=== PATIENT | female | born 1950 | race Caucasian/White ===

== ENCOUNTER 2019-02-01 02:34 | Emergency (ER) | payer SELFPAY ==
[~2019-02-01] VITALS: Ht 157.5 cm; Wt 77.0 kg
[2019-02-01] MEDS ORDERED: SODIUM CHLORIDE 0.9% 1,000 ML IV ONE (03:08)
[2019-02-01] MEDS ORDERED: ONDANSETRON HCL 4MG/2ML INJ IV STA (03:08)
[2019-02-01] MEDS ORDERED: MORPHINE SULFATE 4 MG/ML CPJ (NOT FOR IM USE) IV STA (03:08)
[2019-02-01 03:28] LABS: CHLORIDE 109 mEq/L (98-107)
[2019-02-01 03:30] LABS: BASOPHILS % 0.9 % (0.0-2.0); EOSINOPHILS % 4.7 % (0.0-5.0); HEMOGLOBIN. 12.8 g/dL (12.0-16.0); LYMPHOCYTES % 37.9 % (20.0-50.0); MEAN CORPUSCULAR HEMOGLOBIN 31.5 pg (28.0-32.0); MEAN CORPUSCULAR VOLUME 91.1 fL (81.0-99.0); MONOCYTES % 7.6 % (2.0-8.0); NEUTROPHILS % 48.9 % (40.0-76.0); PLATELET 214 x1000/uL (130-400); RED BLOOD CELL COUNT 4.06 mill/uL (4.2-5.4); RED CELL DISTRIBUTION WIDTH 14.5 % (11.6-14.6)
[2019-02-01] MEDS ORDERED: CLONIDINE 0.1MG TABLET PO PRN (08:00)
[2019-02-01] MEDS ORDERED: DEXTROSE 50% WATER 50ML SYRINGE IV PRN (08:00)
[2019-02-01] MEDS ORDERED: DOCUSATE SODIUM 100MG CAPSULE PO PRN (08:00)
[2019-02-01] MEDS ORDERED: MAGNESIUM/ALUMINUM HYDROXIDE/SIMETHICONE 30ML UDC PO PRN (08:00)
[2019-02-01] MEDS ORDERED: IPRATROPIUM/ALBUTEROL 0.5-3(2.5)MG/3ML NEB INH PRN (08:00)
[2019-02-01] MEDS ORDERED: ACETAMINOPHEN 325MG TABLET PO PRN (08:00)
[2019-02-01] MEDS ORDERED: ZOLPIDEM TARTRATE 5MG TABLET PO PRN (08:00)
[2019-02-01] MEDS ORDERED: ONDANSETRON HCL 4MG/2ML INJ IV PRN (08:00)
[2019-02-01] MEDS ORDERED: GUAIFENESIN 200MG/10ML SUGAR FREE UDC PO PRN (08:00)
[2019-02-01] MEDS ORDERED: INSULIN LISPRO 100 UNITS/ML SUBCUT SCH (08:20)
[2019-02-01] MEDS ORDERED: ENOXAPARIN 40MG/0.4ML SYR SUBCUT SCH (09:00)
[2019-02-01] MEDS ORDERED: FAMOTIDINE 20MG TABLET PO SCH (09:00)
[2019-02-01] MEDS ORDERED: BLOOD SUGAR DIAGNOSTIC STRIP TEST SCH (09:00)
[2019-02-01] MEDS ORDERED: ASPIRIN 325MG EC TABLET PO SCH (09:00)
[2019-02-01 13:50] VITALS: BP 120/60
== END 2019-02-01 14:11 | disposition home or self-care (01) ==
LOC: ER 02:34 → CANBEDREQ 16:18
DX: S06.0X0A Concussion without loss of consciousness, initial encounter (principal); G93.49 Other encephalopathy; E11.9 Type 2 diabetes mellitus without complications; I10 Essential (primary) hypertension; I69.351 Hemiplegia and hemiparesis following cerebral infarction affecting right dominant side; W01.0XXA Fall on same level from slipping, tripping and stumbling without subsequent striking against object, initial encounter; Y93.89 Activity, other specified; Y92.018 Other place in single-family (private) house as the place of occurrence of the external cause
CPT/HCPCS: 36415; 70450; 71045; 72125; 80053; 80061; 82962; 83036; 84484; 85025; 93005; 96372; 96374; 96375; 99284; J1650; J2270; J2405; J7030; Z7610

== ENCOUNTER 2021-09-05 15:38 | Inpatient (IN) | payer BC, MEDICAID ==
[~2021-09-05] VITALS: Ht 165.1 cm; Wt 75.3 kg
[~2021-09-05 15:38] MED LIST: INSULIN GLARGINE UD 100 UNITS/ML SYR SUBCUT SCH
[2021-09-05] MEDS ORDERED: PROCHLORPERAZINE 10MG/2ML VIAL IV STA (16:24)
[2021-09-05] MEDS ORDERED: MECLIZINE 25MG TABLET PO ONE (16:30)
[2021-09-05] MEDS ORDERED: LORAZEPAM 2MG/ML CPJ IV ONE (16:30)
[2021-09-05 19:20] LABS: BASOPHILS % 0.4 % (0.0-2.0); CHLORIDE 108 mEq/L (98-107); EOSINOPHILS % 4.4 % (0.0-5.0); LYMPHOCYTES % 35.6 % (20.0-50.0); MEAN CORPUSCULAR HEMOGLOBIN 29.7 pg (28.0-32.0); MEAN CORPUSCULAR VOLUME 88.6 fL (81.0-99.0); MEAN PLATELET VOLUME 8.8 fl (7.4-10.4); MONOCYTES % 7.4 % (2.0-8.0); NEUTROPHILS % 52.2 % (40.0-76.0); PLATELET 182 x1000/uL (130-400); RED BLOOD CELL COUNT 4.73 mill/uL (4.2-5.4); RED CELL DISTRIBUTION WIDTH 16.3 % (11.6-14.6)
[2021-09-05 19:24] LABS: ETHANOL BLOOD < 10 mg/dL
[2021-09-05 19:30] LABS: LDL CHOLESTEROL 69 mg/dL (5-100)
[2021-09-05 19:41] LABS: PROTHROMBIN TIME 11.1 sec (9.6-11.0)
[2021-09-05 20:29] LABS: CLARITY URINE CLEAR (CLEAR); COLOR URINE DARK YELLOW (YELLOW); KETONES URINE NEGATIVE (NEGATIVE); LEUKOCYTE ESTERASE URINE NEGATIVE (NEGATIVE); NITRITE URINE POSITIVE (NEGATIVE); OCCULT BLOOD URINE TRACE (NEGATIVE); PH URINE 5.5 (4.5-8.0); PROTEIN URINE NEGATIVE (NEGATIVE); SPECIFIC GRAVITY URINE 1.069 (1.005-1.030); UROBILINOGEN URINE 0.2 E.U./dL (0.2-1.0)
[2021-09-05 20:47] LABS: *BARBITURATES SCREEN URINE NEGATIVE (NEGATIVE); *BENZODIAZEPINES SCREEN URINE NEGATIVE (NEGATIVE)
[2021-09-05 20:48] LABS: *AMPHETAMINES SCREEN URINE NEGATIVE (NEGATIVE); *COCAINE SCREEN URINE NEGATIVE (NEGATIVE); METHADONE URINE SCREEN NEGATIVE (NEGATIVE); OPIATES URINE SCREEN PRESUMTIVE POSITIVE (NEGATIVE); PHENCYCLIDINE URINE SCREEN NEGATIVE (NEGATIVE)
[2021-09-05 20:49] LABS: CANNABINOID URINE SCREEN NEGATIVE (NEGATIVE)
[2021-09-05] MEDS ORDERED: CEFTRIAXONE 1 G PREMIX 50 ML IV ONE (21:15)
[2021-09-05] MEDS ORDERED: DEXTROSE 50% WATER 50ML SYRINGE IV PRN (21:30)
[2021-09-05] MEDS ORDERED: ACETAMINOPHEN 325MG TABLET PO PRN (21:30)
[2021-09-05] MEDS ORDERED: ONDANSETRON HCL 4MG/2ML INJ IV PRN (21:30)
[2021-09-05] MEDS ORDERED: GUAIFENESIN 200MG/10ML SUGAR FREE UDC PO PRN (21:30)
[2021-09-05] MEDS ORDERED: CLONIDINE 0.1MG TABLET PO PRN (21:30)
[2021-09-05] MEDS ORDERED: INSULIN GLARGINE UD 100 UNITS/ML SYR SUBCUT NR (21:45)
[2021-09-05] MEDS ORDERED: NALOXONE HCL 0.4MG/ML VIAL IV PRN (21:45)
[2021-09-05] MEDS: ENOXAPARIN 40MG/0.4ML SYR SUBCUT SCH (22:22)
[2021-09-06] MEDS ORDERED: DEXAMETHASONE 10 MG/ML VIAL IV SCH (01:00)
[2021-09-06] MEDS ORDERED: ONDANSETRON HCL 4MG/2ML INJ IV SCH (01:00)
[2021-09-06] MEDS ORDERED: SODIUM CHLORIDE 0.9% 100 ML IV ONE (01:00)
[2021-09-06] MEDS ORDERED: KETOROLAC 15MG/ML VIAL IV SCH (01:00)
[2021-09-06] MEDS ORDERED: IOHEXOL-350 100 ML BOTTLE ONE (05:30)
[2021-09-06 05:33] LABS: BASOPHILS % 0.1 % (0.0-2.0); EOSINOPHILS % 0.7 % (0.0-5.0); HEMATOCRIT. 43.8 % (36.0-48.0); HEMOGLOBIN. 14.6 g/dL (12.0-16.0); LYMPHOCYTES % 12.3 % (20.0-50.0); MEAN CORPUSCULAR HEMOGLOBIN 29.7 pg (28.0-32.0); MEAN CORPUSCULAR VOLUME 89.1 fL (81.0-99.0); MONOCYTES % 2.2 % (2.0-8.0); NEUTROPHILS % 84.7 % (40.0-76.0); PLATELET 189 x1000/uL (130-400); RED BLOOD CELL COUNT 4.92 mill/uL (4.2-5.4); RED CELL DISTRIBUTION WIDTH 16.2 % (11.6-14.6)
[2021-09-06 05:40] LABS: CHLORIDE 111 mEq/L (98-107)
[2021-09-06] MEDS: BLOOD SUGAR DIAGNOSTIC STRIP TEST SCH ×4 (09:43→21:00)
[2021-09-06] MEDS: HYDROCODONE/ACETAMINOPHEN 5/325MG TABLET PO PRN (09:50)
[2021-09-06] MEDS: ACETAMINOPHEN 325MG TABLET PO PRN (12:24)
[2021-09-06] MEDS: INSULIN GLARGINE UD 100 UNITS/ML SYR SUBCUT SCH (12:28)
[2021-09-06] MEDS ORDERED: PROCHLORPERAZINE 10MG/2ML VIAL IV NR ×2 (14:00→21:00)
[2021-09-06] MEDS: MAGNESIUM/ALUMINUM HYDROXIDE/SIMETHICONE 30ML UDC PO PRN (18:40)
[2021-09-06] MEDS: ENOXAPARIN 40MG/0.4ML SYR SUBCUT SCH (21:00)
[2021-09-07 09:00] VITALS: BP 148/73
[2021-09-07 11:37] VITALS: BP 128/75
[2021-09-07] MEDS: BLOOD SUGAR DIAGNOSTIC STRIP TEST SCH ×3 (11:45→21:00)
[2021-09-07 12:00] VITALS: BP 151/79
[2021-09-07] MEDS: INSULIN GLARGINE UD 100 UNITS/ML SYR SUBCUT SCH (15:07)
[2021-09-07] MEDS: HYDROCODONE/ACETAMINOPHEN 5/325MG TABLET PO PRN (15:17)
[2021-09-07 16:00] VITALS: BP 146/75
[2021-09-07] MEDS: DULOXETINE HCL 20MG DR CAPSULE PO SCH (18:42)
[2021-09-07 20:00] VITALS: BP 116/74
[2021-09-07] MEDS: ENOXAPARIN 40MG/0.4ML SYR SUBCUT SCH (21:43)
[2021-09-07 23:25] VITALS: BP 201/97
[2021-09-07] MEDS: ACETAMINOPHEN 325MG TABLET PO PRN (23:27)
[2021-09-08] VITALS: BP 142/76
[2021-09-08 04:00] VITALS: BP 137/65
[2021-09-08] MEDS: ACETAMINOPHEN 325MG TABLET PO PRN (06:04)
[2021-09-08] MEDS: BLOOD SUGAR DIAGNOSTIC STRIP TEST SCH ×4 (06:48→21:32)
[2021-09-08 08:00] VITALS: BP 142/62
[2021-09-08] MEDS: DULOXETINE HCL 20MG DR CAPSULE PO SCH (10:18)
[2021-09-08] MEDS: HYDROCODONE/ACETAMINOPHEN 5/325MG TABLET PO PRN (10:21)
[2021-09-08] MEDS: INSULIN GLARGINE UD 100 UNITS/ML SYR SUBCUT SCH (10:22)
[2021-09-08 11:51] LABS: CHLORIDE 109 mEq/L (98-107)
[2021-09-08 11:56] LABS: BASOPHILS % 0.8 % (0.0-2.0); EOSINOPHILS % 3.9 % (0.0-5.0); HEMATOCRIT. 42.1 % (36.0-48.0); HEMOGLOBIN. 14.4 g/dL (12.0-16.0); LYMPHOCYTES % 44.3 % (20.0-50.0); MEAN CORPUSCULAR HEMOGLOBIN 30.6 pg (28.0-32.0); MEAN CORPUSCULAR VOLUME 89.6 fL (81.0-99.0); MEAN PLATELET VOLUME 9.1 fl (7.4-10.4); MONOCYTES % 8.7 % (2.0-8.0); NEUTROPHILS % 42.3 % (40.0-76.0); PLATELET 214 x1000/uL (130-400); RED CELL DISTRIBUTION WIDTH 16.3 % (11.6-14.6)
[2021-09-08 11:58] LABS: PHOSPHORUS 3.2 mg/dL (2.5-4.9)
[2021-09-08 12:00] VITALS: BP 130/57
[2021-09-08 16:00] VITALS: BP 151/77
[2021-09-08] MEDS ORDERED: KETOROLAC 15MG/ML VIAL IV NR (16:54)
[2021-09-08] MEDS: ENOXAPARIN 40MG/0.4ML SYR SUBCUT SCH (21:34)
[2021-09-08] MEDS: INSULIN LISPRO 100 UNITS/ML SUBCUT SCH (22:50)
[2021-09-09] VITALS: BP 138/82
[2021-09-09 04:00] VITALS: BP 136/64
[2021-09-09] MEDS: BLOOD SUGAR DIAGNOSTIC STRIP TEST SCH ×4 (07:19→21:00)
[2021-09-09 08:05] VITALS: BP 130/95
[2021-09-09] MEDS: INSULIN LISPRO 100 UNITS/ML SUBCUT SCH ×4 (09:15→21:55)
[2021-09-09] MEDS: DULOXETINE HCL 20MG DR CAPSULE PO SCH (09:16)
[2021-09-09] MEDS: KETOROLAC 15MG/ML VIAL IV PRN ×2 (09:17→21:50)
[2021-09-09] MEDS: INSULIN GLARGINE UD 100 UNITS/ML SYR SUBCUT SCH (09:24)
[2021-09-09 12:15] VITALS: BP 140/60
[2021-09-09 16:30] VITALS: BP 176/101
[2021-09-09 21:00] VITALS: BP 148/88
[2021-09-09] MEDS: ENOXAPARIN 40MG/0.4ML SYR SUBCUT SCH (21:56)
[2021-09-10] VITALS: BP 125/79
[2021-09-10] MEDS: ACETAMINOPHEN 325MG TABLET PO PRN ×2 (02:40→09:55)
[2021-09-10 04:00] VITALS: BP 125/69
[2021-09-10] MEDS: KETOROLAC 15MG/ML VIAL IV PRN ×3 (06:19→19:46)
[2021-09-10] MEDS: BLOOD SUGAR DIAGNOSTIC STRIP TEST SCH ×3 (06:45→17:34)
[2021-09-10] MEDS: INSULIN LISPRO 100 UNITS/ML SUBCUT SCH ×2 (07:15→13:01)
[2021-09-10] MEDS: INSULIN GLARGINE UD 100 UNITS/ML SYR SUBCUT SCH (09:50)
[2021-09-10] MEDS: DULOXETINE HCL 20MG DR CAPSULE PO SCH (09:53)
[2021-09-10] MEDS: MAGNESIUM/ALUMINUM HYDROXIDE/SIMETHICONE 30ML UDC PO PRN (09:54)
[2021-09-10 18:06] VITALS: BP 125/69
[2021-09-10 19:46] VITALS: BP 125/69
== END 2021-09-10 20:00 | disposition home or self-care (01) | DRG 103 ==
LOC: ER 15:38 → 5WST 21:09 → SUPCPDRO 21:21 → ENRESERV 09-07 07:43
PROVIDERS: ADMIT Internal Medicine; ATTEND Internal Medicine
PROC: 4A10X4Z Monitoring of Central Nervous Electrical Activity, External Approach (ICD-10-PCS; principal; 2021-09-08)
DX: G43.909 Migraine, unspecified, not intractable, without status migrainosus (principal); E10.9 Type 1 diabetes mellitus without complications; E78.5 Hyperlipidemia, unspecified; F41.9 Anxiety disorder, unspecified; I10 Essential (primary) hypertension; E78.00 Pure hypercholesterolemia, unspecified; J44.9 Chronic obstructive pulmonary disease, unspecified; Z20.822 Contact with and (suspected) exposure to COVID-19; Z86.73 Personal history of transient ischemic attack (TIA), and cerebral infarction without residual deficits; Z79.4 Long term (current) use of insulin
CPT/HCPCS: 36415; 70496; 70498; 71045; 80048; 80053; 80305; 80320; 81003; 82962; 83721; 83735; 83880; 84100; 84484; 85025; 87426; 93005; 95816; 97162; 97165; 97535; 99291; J0696; J0780; J1100; J1650; J1815; J1885; J2060; J2405; J8597; Q9967; G0480